=== PATIENT | male | born 1985 ===

== ENCOUNTER 2022-01-05 21:44 | Emergency (ER) | payer SELFPAY ==
[~2022-01-05] VITALS: Ht 185.4 cm; Wt 73.9 kg
== END 2022-01-06 02:38 | disposition left against medical advice (07) ==
LOC: ER 21:44
DX: L98.9 Disorder of the skin and subcutaneous tissue, unspecified (principal); R19.7 Diarrhea, unspecified; R50.9 Fever, unspecified; Z53.21 Procedure and treatment not carried out due to patient leaving prior to being seen by health care provider
CPT/HCPCS: A9270